=== PATIENT | female | born 1995 | race African-American/Black ===

== ENCOUNTER 2024-04-26 13:03 | Emergency (ER) | payer SELFPAY ==
[~2024-04-26] VITALS: Ht 160 cm; Wt 68.0 kg
[2024-04-26 13:16] VITALS: O2SAT 100
[2024-04-26 14:01] LABS: BASOPHILS % 0.5 % (0.0-2.0); EOSINOPHILS % 0.4 % (0.0-5.0); HEMATOCRIT. 32.4 % (36.0-48.0); HEMOGLOBIN. 10.5 g/dL (12.0-16.0); LYMPHOCYTES % 23.6 % (20.0-50.0); MEAN CORPUSCULAR HGB CONC 32.3 g/dL (31.0-37.0); MEAN CORPUSCULAR VOLUME 86.7 fL (81.0-99.0); MEAN PLATELET VOLUME 8.4 fl (7.4-10.4); MONOCYTES % 4.9 % (2.0-8.0); NEUTROPHILS % 70.6 % (40.0-76.0); PLATELET 297 x1000/uL (130-400); RED BLOOD CELL COUNT 3.74 mill/uL (4.2-5.4); RED CELL DISTRIBUTION WIDTH 15.8 % (11.6-14.6); WHITE BLOOD COUNT 5.1 x1000/uL (4.5-11.0)
[2024-04-26 14:07] LABS: CHLORIDE 104 mEq/L (98-107); POTASSIUM 3.1 mEq/L (3.5-5.1); SODIUM 139 mEq/L (136-145)
[2024-04-26 14:08] LABS: CARBON DIOXIDE 28 mEq/L (21-32)
[2024-04-26 14:09] LABS: CALCIUM 9.3 mg/dL (8.7-10.4)
[2024-04-26 14:13] LABS: GLUCOSE 164 mg/dL (70-105); UREA NITROGEN BLOOD 19 mg/dL (9-23)
[2024-04-26 14:15] LABS: ACETAMINOPHEN < 2 ug/mL (10-30)
[2024-04-26 14:20] LABS: ETHANOL BLOOD < 10 mg/dL (<10)
[2024-04-26 14:51] LABS: HCG SCREEN NEGATIVE
[2024-04-26 17:00] LABS: CLARITY URINE CLEAR (CLEAR); COLOR URINE YELLOW (YELLOW); GLUCOSE URINE 2+ (NEGATIVE); KETONES URINE NEGATIVE (NEGATIVE); LEUKOCYTE ESTERASE URINE NEGATIVE (NEGATIVE); NITRITE URINE NEGATIVE (NEGATIVE); OCCULT BLOOD URINE NEGATIVE (NEGATIVE); PH URINE 6.5 (4.5-8.0); PROTEIN URINE NEGATIVE (NEGATIVE); SPECIFIC GRAVITY URINE 1.009 (1.005-1.030); UROBILINOGEN URINE 0.2 E.U./dL (0.2-1.0)
[2024-04-26 17:08] LABS: *AMPHETAMINES SCREEN URINE NEGATIVE (NEGATIVE); *BARBITURATES SCREEN URINE NEGATIVE (NEGATIVE); *BENZODIAZEPINES SCREEN URINE NEGATIVE (NEGATIVE)
[2024-04-26 17:09] LABS: *COCAINE SCREEN URINE NEGATIVE (NEGATIVE); CANNABINOID URINE SCREEN NEGATIVE (NEGATIVE); ECSTASY MDMA SCREEN URINE NEGATIVE (NEGATIVE); METHADONE URINE SCREEN NEGATIVE (NEGATIVE); OPIATES URINE SCREEN NEGATIVE (NEGATIVE); PHENCYCLIDINE URINE SCREEN NEGATIVE (NEGATIVE)
[2024-04-26 17:20] LABS: BACTERIA URINE NONE SEEN; RBC URINE 0-2 /hpf (0-2); SQUAMOUS EPITHELIAL CELL URINE RARE /lpf (RARE/1+); WBC URINE NONE SEEN /hpf (0-2)
[2024-04-26] MEDS: HALOPERIDOL LACTATE 5MG/ML VIAL IM ONE (18:14)
[2024-04-26] MEDS: LORAZEPAM 2MG/ML INJ IM ONE (18:14)
[2024-04-26] MEDS: POTASSIUM CHLORIDE 20MEQ/PACKET PO ONE (18:14)
[2024-04-26] MEDS: DIPHENHYDRAMINE 50MG/ML VIAL IM ONE (18:14)
[2024-04-27 12:54] VITALS: BP 116/67; PULSE 77; RESP 18; TEMP 98.4
== END 2024-04-27 13:03 | disposition home or self-care (01) ==
LOC: ER 13:10
DX: R45.1 Restlessness and agitation (principal); Z20.822 Contact with and (suspected) exposure to COVID-19
CPT/HCPCS: 80305; 80048; 81003; 80307; 80329; 80320; 84703; 85025; 36415; 96372; 99285; 87426; J1200; J1630; J2060; Z7610; G0480